=== PATIENT | female | born 1960 | race Caucasian/White ===

== ENCOUNTER → 2016-12-15 | Outpatient (CLI) | payer OTHER ==
[~2016-12-15] MED LIST: ADVAIR 1001 DISK W/D PO; ADVAIR 250-501 EAC1; ADVAIR 250-501 EAC1 IH; ADVAIR 250-501 EACH IH; ADVAIR 2501 DISK W/D PO; ALBUTEROL17 GM; ALBUTEROL17 GM INH; AMLODIPINE BESYL5 MG; AMLODIPINE BESYL5 MG PO; ASPIRIN81 M1 PO; ASPIRIN81 M2 PO; ASPIRIN81 MG PO; ASPIRINEC PO; BENTYL20 MG DOB; BENTYL20 MG PO; BLOOD PRESSURE; CARAFATE1 GM PO; CARAMEL FLAVOR30 ML; CEPHALEXIN500 M1 PO; CIPRO PO; DICYCLOMINE HCL20 MG PO; DUONEB 2.5-0.5 M3 ML NEB; FISH OIL 1,0001 CAP PO; FLUOXETINE HCL20 M1; FLUOXETINE HCL20 M1 PO; IBUPROFEN600 MG PO; IMODIUM2 MG PO; LACTINEX T1 TAB.CHEW PO; LIPITOR40 MG; LIPITOR40 MG PO; LO-DOSE ASPIRIN81 M1; LOMOTIL TABLET1 TAB PO; LOPID600 MG PO; LORTAB 7.51 TAB PO; METOCLOPRAMIDE H5 MG; NASONEX17 GM; NORVASC PO; OCEAN45 ML; OMEPRAZOLE40 MG; OMEPRAZOLE40 MG PO; PHENERGAN SUPP25 MG PR; PHENERGAN12.5 M1 PR; PHENERGAN25 M1 PO; PHENERGAN25 MG PO; PREMARIN PO; PRILOSEC PO; PRILOSEC20 M1 PO; PRILOSEC20 MG PO; PROTONIX PO; PROVENTIL INH; PROZAC PO; REGLAN PO; SINGULAIR PO; TRAZODONE HCL100 MG; TRAZODONE HCL100 MG PO; TRAZODONE PO; TYLENOL EXTRA500 M2; VICODIN 5/500 T1 TAB PO; Z PACK; ZETIA PO; ZOCOR PO; ZOFRAN ODT4 MG PO; ZOFRAN PO; ZOFRAN8 MG PO; ZOFRANODT PO
--- NOTE | ~2016-12-15 | MY11 ---
[facility] A Service of [facility] & [facility] RADIOLOGY TEXT RESULTS PATIENT: SANGITA PRABHAKAR LOCATION: [facility] : 60 UNIT #: [id number] AGE: [address]: Adore Sanders APRN SEX: F ORDER DR: [id number] [facility] [address] [place], [place] [address] [id number] O MR#: [id number] Acc #: [id number] NAME: SANGITA PRABHAKAR. : 1960 SEX: F STUDY DATE/TIME: 12/15/2016 12:39 UNIT: [facility] ROOM: STUDY DESCRIPTION: MY Mammogram Screening Dig Tuan Attending Physician: Adore Sanders A.P.R.N. Ordering Physician: Adore Sanders A.P.R.N. Primary Care Physician: Gemma Verma M.D. MEDICAL IMAGING REPORT This report is preliminary unless electronic signature is present EXAM Bilateral digital screening mammogram with CAD. DATE OF EXAM 12/15/2016 INDICATIONS 56-year-old female for routine screening. No reported problems. No personal or family history of breast cancer. No surgeries. TECHNIQUE CC and MLO views were obtained and reviewed with an FDA-approved CAD device. COMPARISON 06/20/2015, 05/24/2014, 05/21/2013. FINDINGS Breast parenchyma is composed of heterogeneously dense breast tissue. This degrades sensitivity of screening mammography but the pattern is unchanged. In the right breast on the CC projection, there are 3 nodular densities present posteriorly. One is in the posterior nipple line and the other two are medial and lateral to the posterior nipple, respectively. These measure about 1 to 1.3 cm and appear larger than on the prior study. There is also a new or enlarging nodular density in the inferior hemisphere right breast on the MLO projection measuring 1.4 cm. Suggest further evaluation with spot compression and true lateral views. If abnormalities persist, ultrasound would be recommended for further assessment. There is otherwise no new dominant nodule in either breast. No suspicious clustered microcalcifications. Benign calcifications are present. Other nodular densities in the breasts are stable. IMPRESSION [facility] A Service of [facility] & [facility] RADIOLOGY TEXT RESULTS PATIENT: SANGITA PRABHAKAR LOCATION: [facility] : 60 UNIT #: [id number] AGE: [address]: Adore Sanders APRN SEX: F ORDER DR: 1. There are new or enlarging nodular densities in the right breast as described. Additional views and breast ultrasound recommended for further assessment. 2. Additional nodular densities in both breasts do not appear appreciably changed. There are benign calcifications. Patients over the age of 40 are entered into a reminder system with target due date for the next mammogram. A result letter will also be sent to the patient. BIRADS: 0 Incomplete; need additional imaging evaluation and/or prior mammograms for comparison. Dictated by... Pb Ceron M.D. THIS IS AN ELECTRONICALLY VERIFIED REPORT Pb Ceron M.D. at 12/16/2016 5:35 PM Eleno TD: 12/15/2016 15:12 JOB #: [id number] MEDICAL IMAGING REPORT Page 1 of 1 COPY
== END | disposition home or self-care (01) ==
LOC: CWCC 12:20
DX: Z12.31 Encounter for screening mammogram for malignant neoplasm of breast (principal); N63 Unspecified lump in breast; R92.1 Mammographic calcification found on diagnostic imaging of breast
CPT/HCPCS: G0202

== ENCOUNTER → 2016-12-23 | Outpatient (CLI) | payer OTHER ==
--- NOTE | ~2016-12-23 | US24 ---
[facility] A Service of [facility] & [facility] RADIOLOGY TEXT RESULTS PATIENT: SANGITA PRABHAKAR LOCATION: [facility] : 60 UNIT #: [id number] AGE: [address]: Adore Sanders APRN SEX: F ORDER DR: [id number] [facility] [address] [place], [place] [address] [id number] O MR#: [id number] Acc #: [id number] NAME: SANGITA PRABHAKAR. : 1960 SEX: F STUDY DATE/TIME: 12/23/2016 15:14 UNIT: [facility] ROOM: STUDY DESCRIPTION: US Breast Unilateral Attending Physician: Adore Sanders A.P.R.N. Referring Physician: Adore Sanders A.P.R.N. Ordering Physician: Adore Sanders A.P.R.N. Primary Care Physician: Gemma Verma M.D. MEDICAL IMAGING REPORT This report is preliminary unless electronic signature is present EXAM Right breast ultrasound INDICATION Right breast mass. PROCEDURE Waldrop-scale and Doppler imaging of the right breast. COMPARISON Concurrently performed diagnostic mammogram. FINDINGS/IMPRESSION Refer to the separately dictated diagnostic mammogram for workup findings and recommendations. BIRADS: 2 Benign findings Dictated by... Josh Collins M.D. THIS IS AN ELECTRONICALLY VERIFIED REPORT Josh Collins M.D. at 12/28/2016 7:14 AM RADHAD/fernanda TD: 12/24/2016 09:46 JOB #: [id number] MEDICAL IMAGING REPORT Page 1 of 1 COPY
--- NOTE | ~2016-12-23 | MY8 ---
[facility] A Service of [facility] & [facility] RADIOLOGY TEXT RESULTS PATIENT: SANGITA PRABHAKAR LOCATION: [facility] : 60 UNIT #: [id number] AGE: [address]: Adore Sanders APRN SEX: F ORDER DR: [id number] [facility] [address] [place], [place] [address] [id number] O MR#: [id number] Acc #: [id number] NAME: SANGITA PRABHAKAR. : 1960 SEX: F STUDY DATE/TIME: 12/23/2016 14:59 UNIT: [facility] ROOM: STUDY DESCRIPTION: MY Mammogram Dx Dig Rt Attending Physician: Adore Sanders A.P.R.N. Referring Physician: Adore Sanders A.P.R.N. Ordering Physician: Adore Sanders A.P.R.N. Primary Care Physician: Gemma Verma M.D. MEDICAL IMAGING REPORT This report is preliminary unless electronic signature is present EXAM Right digital diagnostic mammogram INDICATION Focal asymmetries in the posterior right breast on screening mammogram. PROCEDURE true lateral view of the right breast. Spot compression views of the right breast in the CC and MLO projection. COMPARISON Screening mammogram from 12/15/2016. FINDINGS There is a 1.3 cm and 1.0 cm, persistent ovoid partially obscured mass in the posterior right breast at approximately the 5 o'clock to 6 o'clock position. No associated microcalcification. Concurrently performed right breast ultrasound shows a 1.1 cm cyst at the 5 o'clock position. A small 6 mm cyst at the 5 o'clock position and a third 7 mm cyst at the 5 o'clock position. There is incidentally noted duct ectasia in the subareolar region, with some internal debris. No definite true intraductal mass is seen on real -time imaging. IMPRESSION 1. 3 benign cysts in the posterior right breast at the 5 o'clock position. Correlate with the mammographic abnormality. 2. 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 3. Recommend patient continue with yearly screening. Patient's over the age of 40 are entered into a reminder system with [facility] A Service of [facility] & [facility] RADIOLOGY TEXT RESULTS PATIENT: SANGITA PRABHAKAR LOCATION: [facility] : 60 UNIT #: [id number] AGE: [address]: Adore Sanders APRN SEX: F ORDER DR: target due date for the next mammogram. BIRADS: 2 Benign findings Dictated by... Josh Collins M.D. THIS IS AN ELECTRONICALLY VERIFIED REPORT Josh Collins M.D. at 12/28/2016 7:14 AM MICHAEL/fernanda TD: 12/24/2016 09:02 JOB #: [id number] MEDICAL IMAGING REPORT Page 1 of 1 COPY
== END | disposition home or self-care (01) ==
LOC: CMAM 12:00
DX: R92.8 Other abnormal and inconclusive findings on diagnostic imaging of breast (principal); N60.11 Diffuse cystic mastopathy of right breast; N60.41 Mammary duct ectasia of right breast
CPT/HCPCS: 76641; G0206

== ENCOUNTER → 2017-01-14 | Outpatient (CLI) | payer OTHER ==
--- NOTE | ~2017-01-14 | US6 ---
[facility] A Service of [facility] & [facility] RADIOLOGY TEXT RESULTS PATIENT: SANGITA PRABHAKAR LOCATION: [facility] : 60 UNIT #: [id number] AGE: [address]: Adore Sanders APRN SEX: F ORDER DR: [id number] [facility] [address] [place], [place] [address] [id number] O MR#: [id number] Acc #: [id number] NAME: SANGITA PRABHAKAR. : 1960 SEX: F STUDY DATE/TIME: 01/14/2017 9:55 UNIT: [facility] ROOM: STUDY DESCRIPTION: US Abdominal Limited Attending Physician: Adore Sanders A.P.R.N. Referring Physician: Adore Sanders A.P.R.N. Ordering Physician: Adore Sanders A.P.R.N. Primary Care Physician: Gemma Verma M.D. MEDICAL IMAGING REPORT This report is preliminary unless electronic signature is present EXAM Right upper quadrant ultrasound 01/14/2017 HISTORY Abnormally elevated liver enzymes diagnosed 1 week ago. FINDINGS The liver demonstrates an increase in echotexture with attenuation of the ultrasound beam characteristic of mild fatty infiltration. No cystic or solid mass lesions are seen in the liver. The intra and extrahepatic bile ducts are not dilated. The gallbladder is surgically absent as per patient history. The common duct measures 3 mm. The pancreas is normal. The right kidney demonstrates a 4.8 cm cyst on the upper pole. IMPRESSION 1. Fatty infiltration of the liver. 2. Surgical absence of the gallbladder. 3. Right renal cyst. Dictated by... Kory Mistry M.D. THIS IS AN ELECTRONICALLY VERIFIED REPORT Kory Mistry M.D. at 01/17/2017 12:47 PM PATRICIA/jarred TD: 01/14/2017 23:37 JOB #: [id number] MEDICAL IMAGING REPORT Page 1 of 1 COPY
== END | disposition home or self-care (01) ==
LOC: CWCC 09:44
DX: R74.8 Abnormal levels of other serum enzymes (principal); K76.0 Fatty (change of) liver, not elsewhere classified; Z90.49 Acquired absence of other specified parts of digestive tract; N28.1 Cyst of kidney, acquired
CPT/HCPCS: 76705